=== PATIENT | male | born 1995 | race Caucasian/White ===

== ENCOUNTER 2016-11-16 17:55 | Emergency (ER) | payer BC ==
[2016-11-16 18:51] VITALS: RESP 18
--- NOTE | 2016-11-16 20:54 | ED ---
General Adult HPI - General Chief complaint: Urogenital Stated complaint: LUMP ON TESTICLE Time Seen by Provider: 11/16/16 20:28 Source: patient, RN notes reviewed Mode of arrival: ambulatory Limitations: no limitations - History of Present Illness Initial comments: This a 21-year-old male presents emergency Department chief complaint of lump on his left testicle. Patient states started 4-5 days ago. Patient states it is slightly painful. Patient states there is some swelling. He denies any dysuria or any urethral discharge. He did admit to being treated for chlamydia 2 weeks ago. Patient denies any trauma to his scrotal region. Patient denies fever, chills,, pain, nausea, vomiting, diarrhea constipation. He's had no prior surgeries. - Related Data Home Medications Medication Instructions Recorded Confirmed Doxycycline Hyclate [Vibramycin] 100 mg PO BID 11/16/16 11/16/16 Previous Rx's Medication Instructions Recorded Ibuprofen [Motrin] 600 mg PO Q8HR PRN #30 tab 11/16/16 Allergies Allergy/AdvReac Type Severity Reaction Status Date / Time Penicillins AdvReac Nausea & Verified 11/16/16 20:02 Vomiting Review of Systems ROS Statement: Those systems with pertinent positive or pertinent negative responses have been documented in the HPI. ROS Other: All systems not noted in ROS Statement are negative. Past Medical History Past Medical History: No Reported History History of Any Multi-Drug Resistant Organisms: None Reported Past Surgical History: No Surgical Hx Reported Past Psychological History: No Psychological Hx Reported Smoking Status: Current every day smoker Past Alcohol Use History: Occasional Past Drug Use History: Marijuana General Exam Limitations: no limitations General appearance: alert, in no apparent distress Head exam: Present: atraumatic, normocephalic, normal inspection Respiratory exam: Present: normal lung sounds bilaterally. Absent: respiratory distress, wheezes, rales, rhonchi, stridor Cardiovascular Exam: Present: regular rate, normal rhythm, normal heart sounds. Absent: systolic murmur, diastolic murmur, rubs, gallop, clicks GI/Abdominal exam: Present: soft, normal bowel sounds. Absent: distended, tenderness, guarding, rebound, rigid exam: Present: testicular tenderness (Mild left), scrotal swelling, other ( There is tenderness of the left testicle over the epididymal region). Absent: normal inspection, urethral discharge Back exam: Absent: CVA tenderness (R), CVA tenderness (L) Course Vital Signs 11/16/16 11/16/16 18:44 20:31 Temperature 98.8 F 99.3 F Pulse Rate 120 H 91 Respiratory 18 18 Rate Blood Pressure 135/86 126/84 O2 Sat by Pulse 99 98 Oximetry Medical Decision Making - Medical Decision Making 21-year-old male present emergency from for left testicular pain. Patient does have some tenderness over the epididymis. Patient ultrasound does not show any acute abnormality. Patient is currently being treated for chlamydia with doxycycline. Patient will continue the course of treatment and follow-up with PCP. Disposition Clinical Impression: Epididymitis Disposition: HOME SELF-CARE Condition: Stable Instructions: Epididymitis (ED) Additional Instructions: Continue your antibiotics as directed.Please return to the Emergency Department if symptoms worsen or any other concerns. Prescriptions: Ibuprofen [Motrin] 600 mg PO Q8HR PRN #30 tab PRN Reason: Pain Referrals: Sandoval Galloway III, MD [Primary Care Provider] - 1-2 days Time of Disposition: 21:31
--- NOTE | 2016-11-16 21:26 | US ---
EXAMINATION TYPE: US scrotum with doppler. Grayscale and color Doppler Duplex imaging performed of t juan scrotum. DATE OF EXAM: 11/16/2016 COMPARISON: NONE CLINICAL HISTORY: Pain. Left testicle lump EXAM MEASUREMENTS: TESTICLES: Right Testicle: 3.7 x 1.9 x 2.9 cm Left Testicle: 3.8 x 2.3 x 2.9 cm EPIDIDYMIS HEAD: Right Epididymis: 0.8 x 0.7 x 0.7 cm Left Epididymis: 1.0 x 1.3 x 0.6 cm Doppler performed to assess for testicular vascularity; good bilateral color flow and waveforms are s een. There is no evidence of testicular torsion. Presence of hydroceles: no Presence of varicoceles: no IMPRESSION: Normal exam. No evidence of testicular torsion or mass.
[2016-11-16 21:30] LABS: Appearance,Urine Clear (Clear); Bilirubin,Urine Negative (Negative); Glucose,Urine (UA) Negative (Negative); Ketones,Urine Negative (Negative); Leukocyte Esterase,Urine Negative (Negative); Nitrite,Urine Negative (Negative); PH, Urine 5.5 (5.0-8.0); Protein,Urine Negative (Negative); Specific Gravity,Urine 1.014 (1.001-1.035); UA Billing (MACRO vs. MICRO) CHEM; Urobilinogen,Urine <2.0 mg/dL (<2.0)
[2016-11-16 21:44] VITALS: BP 139/85; PULSE 76; TEMP 98.2
== END 2016-11-16 21:40 | disposition home or self-care (01) ==
LOC: EC 17:55
DX: N45.1 Epididymitis (principal); F17.200 Nicotine dependence, unspecified, uncomplicated; Z88.0 Allergy status to penicillin
CPT/HCPCS: 76870; 81003; 87086; 87491; 87591; 93975; 99284